=== PATIENT | female | born 1945 | race Caucasian/White ===

== ENCOUNTER 2025-03-06 14:41 | Emergency (ER) | payer OTHER, MEDICARE, SELFPAY ==
[2025-03-06 14:45] VITALS: BP 123/84
[2025-03-06 15:00] VITALS: BP 113/68
[2025-03-06 16:00] VITALS: BP 118/71
--- NOTE | 2025-03-06 17:45 | ED.GENMED ---
History of Present Illness
General
Chief Complaint: Fall
Source: ambulance crew and snf
Exam Limitations: dementia
Time Seen by Provider: 03/06/25 17:15
Nursing documentation reviewed up to this point in time: agreed with
History of Present Illness
History of Present Illness:
see MDM
Past History
Social History
Tobacco: Non-smoker
Alcohol: None
Review of Systems
Review of Systems
Allergies reviewed?: Yes
All Other Systems: Not applicable
Phy Exam
Physical Exam
Physical Exam:
GENERAL: Alert , in no apparent distress, pale
HEAD: NO SIGNS HEAD TRAUMA BUT
FACE: NOSE SWELLING
UPPER LIP SIGNIFICANT LIP LACERATION THROUGH HUGO BORDER ANDS PLINT THROUGH THE MUCOSA
NECK: no midline tenderness, active ROM intact, no paraspinal muscle tenderness;
EYE: pupils equal and reactive, EOMs intact.
ENT: o/p clr, mmm. no hemotympanum
DRIED BLOOD IN NOSTRIL
NO ACTIVE BLEEDING
POOR DENTITION
GINGIVAL TRAUMA IT APPEARS
MISSING R UPPER CENTRAL INCISOR AND LATERAL INCISOR
CARDIAC: Regular rate and rhythm, no edema
LUNGS: Clear breath sounds bilaterally, no acute respiratory distress, no wheezes/rales/rhonchi
ABDOMEN: Soft, without focal tenderness, no r/g, no cvat
NEUROLOGICAL: Alert; ALZHEIMERS; repeatedly asking to eat, no focal neuro deficits,
SKIN: Warm and dry,
MUSCULOSKELETAL: No edema, well perfused.
PSYCH: anxious
Course
Orders/Labs/Results
Orders:
Orders
03/06/25 16:43
CT Head W/o Iv Contrast Urgent
Comment:
Reason For Exam: unwitnessed fall, + head strike
03/06/25 17:38
Electrocardiogram (*1) Urgent
Reason for Study: Other
Other Reason for Exam: fall, tachycardia
CT Facial Bones W/o Iv Contras Urgent
Comment:
Reason For Exam: facial injury
EKG- Treatment ONCE
03/06/25 17:49
Complete Blood Count/With Diff Urgent
Comprehensive Metabolic Panel Urgent
03/06/25 19:10
0.9% Sodium Chloride 250 ml [Nss] 250 ml IV BOLUS
03/06/25 19:47
Amoxicillin [Amoxil] 500 mg PO NOW STA
Abnormal Lab Results
03/06/25
17:49
WBC 11.4 H 10^3/uL
(4.8-10.8)
RBC 3.50 L 10^6/uL
(4.20-5.40)
Hgb 10.6 L g/dL
(12.0-16.0)
Hct 30.7 L %
(37.0-47.0)
Absolute Neuts (auto) 9.7 H 10^3/uL
(1.4-6.5)
Neutrophils % 84.7 H %
(42.2-75.2)
Lymphocytes % 10.1 L %
(20.5-51.1)
Chloride 110 H mmol/L
(98-107)
BUN 33 H mg/dl
(7-17)
Creatinine 1.2 H mg/dL
(0.6-1.0)
Glucose 143 H mg/dl
(70-99)
03/06/25 17:49
03/06/25 17:49
Vital Signs
Initial and Last Documented VS:
Initial Vital Signs
Pulse Resp BP Pulse Ox
120 31 123/84 100
03/06/25 14:45 03/06/25 14:45 03/06/25 14:45 03/06/25 14:45
Last Documented Vital Signs
Temp Pulse Resp BP Pulse Ox
36.9 C 86 18 124/76 100
03/06/25 19:33 03/06/25 19:51 03/06/25 19:51 03/06/25 19:33 03/06/25 19:51
Procedures
Laceration Closure
Lip:
Status of Wound: clean
Description of Wound Edges: ragged and macerated
Preparation: cleaned with saline
Anesthesia: 1% Lidocaine and Digital-Regional (inferior orbital block)
Revision/Debridement: extensive revision and irrigate-direct pressure
Wound exploration: extensive cleaning of contaminated wound
Type of Closure: layered closure
Skin Closure Material: 6-0 nylon and 5-0 chromic gut
Number of sutures: 7
MDM/Problems Addressed
Differential Diagnosis Includes:
see MDM
MDM/Problems Addressed:
Note:
CHIEF COMPLAINT(S)
Laceration to the lip and dental trauma.
HISTORY OF PRESENT ILLNESS
The patient, a female, presents with a laceration to the lip and dental trauma following a fall.
She is a 79-year-old female from [facility] rehab with a history of Alzheimer's and at baseline is very confused and mostly nonverbal who presents after a fall. Apparently it was witnessed by her roommates who are oriented. They called for help
and the patient was found facedown on the ground but awake. She appeared to be at her baseline but she has an obvious lip laceration. It is unknown if she syncopized but it is unlikely given the roommates history. I did not speak directly with
them but this is what the nurse at [facility] told me
She is not anticoagulated
It sounds as if there is chronic dental decay or not really sure how many teeth in her upper mouth could be missing from this trauma
the patient is unable to recall the exact details of the fall
There were no teeth found on the floor
REVIEW OF SYSTEMS
- Mouth: Laceration to the lip, dental trauma noted.
PHYSICAL EXAM
- Mouth: Laceration noted on the lip with exposed tissue. Evidence of dental trauma with missing teeth.
PROBLEM LIST
- Acute: Laceration to the lip, dental trauma.
DIFFERENTIAL DIAGNOSIS
The Differential Diagnosis includes, in no particular order and is not limited to:
1. Facial trauma due to fall
2. Lip laceration
3. Dental trauma
4. Maxillofacial fracture
5. Concussion
6. Soft tissue injury
7. Intracranial hemorrhage
8. Cervical spine injury
9. Oral cavity infection
10. Contusion of the face
03/06/25 - 19:11
CT imaging revealed no intracranial hemorrhage or fractures. The patient did experience mild swelling and bruising around the facial area consistent with the fall, but no surgical intervention is required beyond the sutures placed. Her vital signs
stabilized following administration of fluids. Considering her mild anemia, recommended a follow-up with her primary care physician for further evaluation and management. Anxiety likely contributed to the tachycardia; discussed with the patient�s
caregivers about monitoring her anxiety levels and providing reassurance. Patient continues to ask to eat, and approval has been given to start on a soft diet now that imaging findings are clear. Anticipate discharge later today with instructions on
suture care and follow-up.
CT negative for head injury, she does have a nasal fracture. She could have dental avulsion from this trauma but no other facial fractures. Will cover with Augmentin amoxicillin. Wound care instructions given for the lip laceration. Will need
discharge and a ride back to her facility. Patient is able to eat
*Pulse Oximetry
SaO2: 100
Patient hypoxic: no (100)
*Critical Care Note
Total Time (30-74mins, 75-104mins- exclusive of procedures): Not Applicable
ED Attending Note
-
Portions of this chart may have been created with voice recognition software.� Occasional wrong word or��sound alike� substitutions may have occurred due to the inherent limitations of voice recognition software.
Discharge Plan
Departure
Patient Disposition: Jail/SNF
Date of Disposition: 03/06/25
Time of Disposition: 19:48
Discharge Problem:
Laceration of mouth with complication
Instructions: Laceration Repair With Stitches (DC), Mouth and dental injuries in adults
Prescriptions:
New
amoxicillin 500 mg capsule
500 mg PO Q12H Qty: 14 0RF
No Action
metformin 500 mg Tablet
500 mg PO DAILY
acetaminophen [Tylenol] 325 mg Tablet
650 mg PO Q6HPRN PRN (Reason: mild pain)
lovastatin 10 mg Tablet
10 mg PO QPM
magnesium hydroxide [Milk of Magnesia] 400 mg/5 mL Suspension
2,400 mg PO DAILYPRN PRN (Reason: if no bm by 3rd day)
bisacodyl [Dulcolax (bisacodyl)] 10 mg Suppository
10 mg UT DAILYPRN PRN (Reason: if no bm aftr mom)
Fleet Enema 19-7 gram/118 mL Enema
118 ml UT DAILYPRN PRN (Reason: if no bm aftr dulolcax)
lisinopril 5 mg Tablet
15 mg PO DAILY
mirtazapine [Remeron] 15 mg Tablet
15 mg PO HS
glucosamine sulfate 750 mg Tablet
750 mg PO BID
Januvia 50 mg Tablet
50 mg PO DAILY
mirabegron [Myrbetriq] 50 mg Tablet Extended Release 24 Hr
50 mg PO DAILY
Lorazepam Gel
1 ml topical Q6HPRN PRN (Reason: anxiety)
Rx Instructions:
gel 1mg per 1 ml
Referrals:
Mynor Hernández, [Family Provider, Internal Medicine]
Activity Restrictions/Additional Instructions:
Zoë was found did not have any trauma to her head. She does have a mildly nondisplaced fracture of her nasal bone. It is unclear whether one of her teeth were knocked out but it appears that way. She has no other facial bone fractures. I
irrigated the wound and repaired it with sutures. She has 2 sutures in her mouth that should dissolve on their own. The 4 or 5 external sutures that are black need to be removed in about 5 to 7 days. To prevent infection use AMOXICILLIN twice a
day for 7 days.
You can give her Tylenol as needed for pain. Ice off-and-on to her nose. You can follow-up with a dentist and an ear nose and throat doctor as needed. She was a little dehydrated so we gave her some IV fluids. And she has mild anemia. Otherwise
she can follow-up with her family doctor
Interventions
Interventions:
*Risk Screen - Suicide Last Done: 03/06/25 19:38
*General Assessment Last Done: 03/06/25 19:38
*Neglect/Abuse Screening Last Done: 03/06/25 19:38
ED-Musculoskeletal Assessment Last Done: 03/06/25 14:49
ED- Neurological Assessment Last Done: 03/06/25 14:47
ED-Skin Assessment Last Done: 03/06/25 14:47
Discharge Date and Time
Print Language: SURINAMESE
[2025-03-06 17:59] LABS: Hematocrit 30.7 % (37.0-47.0); Hemoglobin 10.6 g/dL (12.0-16.0); Mean Corp Hgb Conc. 34.5 g/dL (33.0-37.0); Mean Corpuscular Volume 87.7 fL (81.0-99.0); Nucleated Red Blood Cells % 0 %; Platelet Count 270 10^3/uL (130-400); Red Cell Dist. Width 12.8 % (11.5-14.5)
[2025-03-06 18:19] LABS: ALT (SGPT) 14 U/L (0-35); AST (SGOT) 24 U/L (14-36); Albumin 4.3 g/dl (3.5-5.0); Alkaline Phosphatase 50 U/L (38-126); Blood Urea Nitrogen 33 mg/dl (7-17); Calcium 9.9 mg/dl (8.4-10.2); Carbon Dioxide 22 mmol/L (22-30); Chloride 110 mmol/L (98-107); Glucose 143 mg/dl (70-99); Potassium 4.6 mmol/L (3.5-5.1); Sodium 141 mmol/L (135-145); Total Protein 6.9 g/dl (6.3-8.2); eGFR 46.62
[2025-03-06 19:33] VITALS: BP 124/76
[2025-03-06] MEDS: NSS 250 IV (19:36)
[2025-03-06] MEDS: AMOXIL 500 MG PO (19:59)
[2025-03-06 20:18] VITALS: BP 142/80
== END 2025-03-06 20:49 ==
LOC: EMR 14:41
PROVIDERS: Physician Assistant; EMERGENCY PHYSICIAN Emergency Medicine; FAMILY PHYSICIAN Internal Medicine
DX: S01.511A Laceration without foreign body of lip, initial encounter (principal); W19.XXXA Unspecified fall, initial encounter; F02.80 Dementia in other diseases classified elsewhere, unspecified severity, without behavioral disturbance, psychotic disturbance, mood disturbance, and anxiety; G30.9 Alzheimer's disease, unspecified; R00.0 Tachycardia, unspecified
CPT/HCPCS: 12051; 96360; 99284; 70450; 70486; 80053; 85025; 93005